=== PATIENT | female | born 1945 | race Caucasian/White ===

== ENCOUNTER 2024-07-17 00:36 | Outpatient (CLI) | payer MEDICARE, OTHER | END 2024-07-17 00:37 | disposition critical access hospital (66) | LOC: EMS 00:36 | DX: R06.00 Dyspnea, unspecified (principal); R06.2 Wheezing; R05.9 Cough, unspecified; I10 Essential (primary) hypertension | CPT/HCPCS: A0425; A0427 ==

== ENCOUNTER 2024-07-17 00:46 | Emergency (ER) | payer MEDICARE, OTHER ==
--- NOTE | 2024-07-17 00:55 | ED Physician Documentation ---
PD HPI DYSPNEA - Stated complaint Stated Complaint: SOA - History obtained from History obtained from: Patient, EMS - Additional information Additional information: BIBA. HPI from patient, EMS. Unfortunately, the patient is a poor historian; answers at least half of my questions with variations on "I do not know", including vague answers that do not really address the question. However, she is able to answer some of my questions and provide some idea as to her HPI/ROS and her chief medical concerns. Patient is visiting a friend on [facility] having flown from her home in [place] earlier today (07/16/2024). Patient's friend was concerned when she found that the patient was visibly dyspneic with grossly audible wheezing and frequent coughing. Medic report includes that the patient formed them that she has been short of breath and coughing for nearly a year, but on ED RN's triage HPI, the patient is indicating her shortness of breath and coughing, wheezing started just a few days ago. Patient says she takes prescription medications but does not know which ones. That she can tell me is that she has high blood pressure. She specifically is denying COPD/asthma/emphysema. She denies using any oxygen at home, denies having prescription nebulizers or inhalers. She denies any pain, specifically chest pain, abdominal pain. She denies leg swelling. She denies hemoptysis. She is unsure if she has been having fevers recently. She says the dyspnea is distinctly worse with exertion. ED RN is able to get another piece of information from family over the phone and that patient flew from [facility] to [place] approximately 1 week ago. Patient says she has allergies to some medications but has no idea what they are or what they were prescribed/used for. For questions like these (where she says she has no idea as to the correct answer), she repeatedly instructs me to "just call my doctor in [place] and they can tell you" (or variations on this, despite being reminded that I will not be able to contact offices of private medical practice at this hour). PD PAST MEDICAL HISTORY - Past Medical History Past Medical History: Yes Cardiovascular: Hypertension - Present Medications Home Medications: Ambulatory Orders Medication Instructions Recorded Confirmed Albuterol Sulf [Ventolin Hfa 1 - 2 puffs INH Q4HR PRN #1 each 07/17/24 Inhaler] predniSONE [Deltasone] 40 mg PO DAILY 4 Days #8 tablet 07/17/24 - Allergies Allergies/Adverse Reactions: Allergies Allergy/AdvReac Type Severity Reaction Status Date / Time No Known Drug Allergies Allergy Verified 07/17/24 00:57 PD ED PE NORMAL - Vitals Vital signs reviewed: Yes - General General: Alert and oriented X 3, Well developed/nourished, Other (tachypneic, frequent coughing ) - Neck Neck: Supple, no meningeal sign - Abdomen Abdomen: Soft, Non tender - Extremities Extremities: No edema PD ED PE EXPANDED - Cardiac Cardiac: Tachy, Regular Rhythm - Respiratory Respiratory: Wheezing (all lung rocha bilaterally with I/E wheezing). No: Gasping, Rhonchi Results - Vitals Vitals: Vital Signs - 24 hr 07/17/24 07/17/24 07/17/24 00:48 00:56 01:05 Temperature 36.9 C Heart Rate 124 H 119 H 118 H Respiratory 16 24 18 Rate Blood Pressure 176/106 H 197/96 H O2 Saturation 95 99 07/17/24 07/17/24 07/17/24 02:15 02:42 03:45 Temperature 37 C Heart Rate 113 H 105 H 99 Respiratory 16 18 18 Rate Blood Pressure 146/63 H 137/70 H O2 Saturation 93 94 Oxygen O2 Source Room air - EKG (time done) No standard instances EKG releavant findings:: EKG personally interpreted by author of this note. Relevant findings are: Rate: Rate (enter#) (122) Rhythm: Sinus tachycardia [place]: Normal Intervals: Normal SD, Wide QRS, LBBB Ischemia: Non specific changes - Labs Labs: Laboratory Tests 07/17/24 07/17/24 07/17/24 00:55 00:55 00:58 WBC 11.1 H RBC 4.54 Hgb 13.1 Hct 40.8 MCV 89.9 MCH 28.9 MCHC 32.1 RDW 14.1 Plt Count 300 MPV 10.9 H Neut # (Auto) 8.5 H Lymph # (Auto) 1.1 L [place] # (Auto) 0.8 Eos # (Auto) 0.7 Baso # (Auto) 0.1 Absolute Nucleated RBC 0.00 Nucleated RBC % 0.0 Sodium Potassium Chloride Carbon Dioxide Anion Gap BUN Creatinine Estimated GFR (MDRD) Glucose Calcium Total Bilirubin AST ALT Alkaline Phosphatase B-Natriuretic Peptide 447 H Total Protein Albumin Globulin Albumin/Globulin Ratio Lipase Nasal Adenovirus (PCR) NOT DETECTED Nasal B. parapertussis DNA (PCR) NOT DETECTED Nasal Coronavir 229E PCR NOT DETECTED Nasal Coronavir HKU1 PCR NOT DETECTED Nasal Coronavir NL63 PCR NOT DETECTED Nasal Coronavir OC43 PCR NOT DETECTED Nasal Enterovir/Rhinovir PCR DETECTED A Nasal Influenza B PCR NOT DETECTED Nasal Influenza A PCR NOT DETECTED Nasal Parainfluen 1 PCR NOT DETECTED Nasal Parainfluen 2 PCR NOT DETECTED Nasal Parainfluen 3 PCR NOT DETECTED Nasal Parainfluen 4 PCR NOT DETECTED Nasal RSV (PCR) NOT DETECTED Nasal B.pertussis DNA PCR NOT DETECTED Nasal C.pneumoniae (PCR) NOT DETECTED [place] Human Metapneumo PCR NOT DETECTED Nasal M.pneumoniae (PCR) NOT DETECTED Nasal SARS-CoV-2 (PCR) NOT DETECTED 07/17/24 01:32 WBC RBC Hgb Hct MCV MCH MCHC RDW Plt Count MPV Neut # (Auto) Lymph # (Auto) [place] # (Auto) Eos # (Auto) Baso # (Auto) Absolute Nucleated RBC Nucleated RBC % Sodium 135 Potassium 3.5 Chloride 99 L Carbon Dioxide 25 Anion Gap 11.0 BUN 13 Creatinine 0.8 Estimated GFR (MDRD) 69 L Glucose 124 H Calcium 9.8 Total Bilirubin 0.6 AST 13 ALT 7 L Alkaline Phosphatase 79 B-Natriuretic Peptide Total Protein 7.5 Albumin 4.1 Globulin 3.4 Albumin/Globulin Ratio 1.2 Lipase 28 Nasal Adenovirus (PCR) Nasal B. parapertussis DNA (PCR) Nasal Coronavir 229E PCR Nasal Coronavir HKU1 PCR Nasal Coronavir NL63 PCR Nasal Coronavir OC43 PCR Nasal Enterovir/Rhinovir PCR Nasal Influenza B PCR Nasal Influenza A PCR Nasal Parainfluen 1 PCR Nasal Parainfluen 2 PCR Nasal Parainfluen 3 PCR Nasal Parainfluen 4 PCR Nasal RSV (PCR) Nasal B.pertussis DNA PCR Nasal C.pneumoniae (PCR) [place] Human Metapneumo PCR Nasal M.pneumoniae (PCR) Nasal SARS-CoV-2 (PCR) - Rads (name of study) chest xray Relevant Findings:: Prelim report reviewed, See rad report PD Medical Decision Making - ED course Complexity details: reviewed results, re-evaluated patient, considered differential, d/w patient ED course: No concerning nor diagnostic findings on tonight's blood tests. Elevated BNP (447) but no other findings on exam nor other tests (specifically chest x-ray) to support CHF/fluid overload. Chest x-ray demonstrates hyperinflation of the lungs and mild streaking bilateral bases, possibly bronchitis. Respiratory nasal PCR viral panel is positive for enterovirus/rhinovirus. She was given a DuoNeb en route by EMS, and given 2 more nebulized treatments (albuterol) in the emergency department. She is also given 10 mg Decadron IV early in ED stay. She did not have an oxygen requirement to maintain adequate pulse ox/saturations during ED stay. Her room air pulse ox ranged from 93-99% and she was in no respiratory distress throughout ED stay except for when she first arrived. On multiple reevaluations, she is speaking in full sentences. Her lungs had steadily decreased wheezing to auscultation which, on reevaluation prior to discharge, is limited to the bilateral upper lung rocha and was only expiratory wheezing. No rales nor rhonchi. Discussed results with the patient. I am providing her with a prescription for an albuterol inhaler as well as 4 days of prednisone 40 mg daily. At this time, the most likely etiology is viral bronchitis with bronchospasm. I emphasized the importance of following up with her PCP even if her symptoms resolve for reevaluation. Departure - Departure Disposition: 01 Home, Self Care Clinical Impression: Bronchitis with bronchospasm Condition: Good Instructions: ED Bronchitis Asthmatic Prescriptions: Albuterol Sulf [Ventolin Hfa Inhaler] 1 - 2 puffs INH Q4HR PRN #1 each PRN Reason: Shortness Of Air/Wheezing predniSONE [Deltasone] 40 mg PO DAILY 4 Days #8 tablet Comments: You tested positive for enterovirus/rhinovirus tonight. These are viruses that are prime examples of "common cold" viruses; they rarely cause serious medical problems but, as was the case tonight for you, they can sometimes cause bronchospasm (asthmatic-like reaction of the airways) that leads to wheezing and difficulty breathing. For this, you were given several breathing treatments and I am providing with a prescription for an albuterol inhaler. You were also given a steroid through your IV, and I am also providing you a prescription for a 4-day course of a similar steroid to be taken orally. The steroid is used for its anti-inflammatory effect, which should reduce the airway spasm, allowing for easier breathing and less coughing and less wheezing. It is very important that you follow-up with your primary care provider, next available appointment, for reevaluation. Forms: PCP List Discharge Date/Time: 07/17/24 03:45
[2024-07-17 01:03] LABS: BASOPHILS # (AUTO) 0.1 10^3/uL (0.0-0.1); BASOPHILS % (AUTO) 0.8 %; EOSINOPHILS # (AUTO) 0.7 10^3/uL (0.0-0.7); EOSINOPHILS % (AUTO) 6.1 %; HCT - HEMATOCRIT 40.8 % (37.0-47.0); HGB - HEMOGLOBIN 13.1 g/dL (12.0-16.0); LYMPHOCYTES # (AUTO) 1.1 10^3/uL (1.5-3.5); LYMPHOCYTES % (AUTO) 10.1 %; MEAN CORPUSCULAR HEMOGLOBIN 28.9 pg (27.0-31.0); MEAN CORPUSCULAR HGB CONC 32.1 g/dL (32.0-36.0); MEAN CORPUSCULAR VOLUME 89.9 fL (81.0-99.0); MEAN PLATELET VOLUME 10.9 fL (7.9-10.8); MONOCYTES # (AUTO) 0.8 10^3/uL (0.0-1.0); MONOCYTES % (AUTO) 6.8 %; NEUTROPHILS # (AUTO) 8.5 10^3/uL (1.5-6.6); NEUTROPHILS % (AUTO) 75.9 %; PLT - PLATELET COUNT 300 10^3/uL (130-450); RED BLOOD COUNT 4.54 10^6/uL (4.20-5.40); RED CELL DISTRIBUTION WIDTH 14.1 % (12.0-15.0); WHITE BLOOD COUNT 11.1 x10^3/uL (4.8-10.8)
[2024-07-17] MEDS: ALBUTEROL NEB 2.5 MG/3 ML INH STA ×2 (01:05→02:15)
[2024-07-17] MEDS: DEXAMETHASONE 10 MG/ML VIAL IVP STA (01:14)
--- NOTE | 2024-07-17 01:52 | XRAY Report ---
PROCEDURE: Chest 2V INDICATIONS: cough, dyspnea TECHNIQUE: 2 views of the chest were acquired. COMPARISON: None. FINDINGS: Surgical changes and devices: None. Lungs and pleura: Hyperinflated, hyperlucent lungs with coarse interstitial markings. There is mild bronchial wall thickening in the lower lobes bilaterally. No dense consolidations. Biapical pleural p laquing. No pleural effusions. Mediastinum: Mediastinal contours appear normal. Heart size is normal. Bones and chest wall: No suspicious bony lesions. Overlying soft tissues appear unremarkable. IMPRESSION: Findings suggesting chronic emphysema/COPD. Lower lobe bronchitis may be acute or chronic.. Reviewed by: Dejah Rios MD on 07/17/2024 1:50 AM PDT Approved by: Dejah Rios MD on 07/17/2024 1:50 AM PDT Station ID: [id number]
[2024-07-17 01:54] LABS: ALBUMIN 4.1 g/dL (3.2-5.5); ALBUMIN/GLOBULIN RATIO 1.2 (1.0-2.2); BILIRUBIN,TOTAL 0.6 mg/dL (0.2-1.0); CALCIUM 9.8 mg/dL (8.5-10.3); CREATININE 0.8 mg/dL (0.6-1.3); POTASSIUM 3.5 mmol/L (3.5-4.5); TOTAL PROTEIN 7.5 g/dL (6.4-8.9)
[2024-07-17 01:58] LABS: B. PARAPERTUSSIS- RESP PCR PAN NOT DETECTED; B. PERTUSSIS- RESP PCR PANEL NOT DETECTED; C. PNEUMONIAE- RESP PCR PANEL NOT DETECTED; CORONAVIRUS 229E-RESP PCR NOT DETECTED; CORONAVIRUS HKU1-RESP PCR NOT DETECTED; CORONAVIRUS NL63-RESP PCR NOT DETECTED; CORONAVIRUS OC43-RESP PCR NOT DETECTED; HUMAN METAPNEUMOVIRUS NOT DETECTED; INFLUENZA A- RESP PCR PANEL NOT DETECTED; INFLUENZA B - RESP PCR PANEL NOT DETECTED; M. PNEUMONIAE- RESP PCR PANEL NOT DETECTED; PARAINFLUENZA VIRUS 1 NOT DETECTED; PARAINFLUENZA VIRUS 2 NOT DETECTED; PARAINFLUENZA VIRUS 3 NOT DETECTED; PARAINFLUENZA VIRUS 4 NOT DETECTED; RHINOVIRUS/ENTEROVIRUS DETECTED; RSV- RESP PCR PANEL NOT DETECTED; SARS-CoV-2 -RESP PCR PANEL NOT DETECTED
[2024-07-17 04:52] VITALS: BP 137/70; O2SAT 94
== END 2024-07-17 03:45 | disposition home or self-care (01) ==
LOC: ED 00:46
DX: J40 Bronchitis, not specified as acute or chronic (principal); I10 Essential (primary) hypertension
CPT/HCPCS: 36415; 80053; 83690; 83880; 85025; 87633; 93005; 94640; 96374; 99284